=== PATIENT | female | born 1990 | race Two or more races ===

== ENCOUNTER 2024-03-09 09:37 | Emergency (ER) | payer OTHER ==
[~2024-03-09] VITALS: Ht 154.9 cm; Wt 62.6 kg
[2024-03-09] MEDS ORDERED: PRENA1 TRUE CO1 EACH PO (10:02)
[2024-03-09 10:53] LABS: HEMATOCRIT 34.7 % (36.0-45.00); HEMOGLOBIN 11.6 g/dL (12.0-15.00); MEAN CELL VOLUME 81.9 fL (80.00-100.00); MEAN CORPUSCULAR HEMOGLOBIN 27.4 pg (27.00-32.0); MEAN CORPUSCULAR HGB CONC 33.5 g/dl (32.0-36.0); PLATELET COUNT 341 K/uL (150-450); RED BLOOD COUNT 4.23 M/uL (4.00-6.00)
[2024-03-09 11:39] LABS: PH,URINE 5.5 (5.0-8.0); URINE APPEARANCE Cloudy; URINE BILIRRUBIN Negative (NEGATIVE); URINE BLOOD Moderate; URINE COLOR Dark Yellow; URINE GLUCOSE Negative (NEGATIVE); URINE KETONE Trace (NEGATIVE); URINE LEUKOCYTE Negative; URINE NITRATE Negative; URINE PROTEIN Trace (NEGATIVE)
[2024-03-09 11:43] LABS: URINE BACTERIA 2935.7 uL (0.0-1933); URINE EPITHELIAL CELLS 40.1 uL (0.0-38.8); URINE RBC 12.3 uL (0.0-20.8)
[2024-03-09 12:14] LABS: URINE CAST 0.76 uL (0.0-1.40)
[2024-03-09] MEDS ORDERED: AMOX1TAB5 PO (12:22)
[2024-03-09] MEDS ORDERED: PEPCID AC20 MG PO (12:22)
== END 2024-03-09 12:28 | disposition home or self-care (01) ==
LOC: ER 09:38
PROVIDERS: General Practice
DX: R53.81 Other malaise (principal); N93.9 Abnormal uterine and vaginal bleeding, unspecified; Z3A.10 10 weeks gestation of pregnancy

== ENCOUNTER 2024-03-26 05:48 | Day surgery (SDC) | payer OTHER ==
[2024-03-24 13:06] LABS: HEMATOCRIT 35.6 % (36.0-45.00); HEMOGLOBIN 11.9 g/dL (12.0-15.00); MEAN CELL VOLUME 81.6 fL (80.00-100.00); MEAN CORPUSCULAR HEMOGLOBIN 27.2 pg (27.00-32.0); MEAN CORPUSCULAR HGB CONC 33.4 g/dl (32.0-36.0); PLATELET COUNT 369 K/uL (150-450); RED BLOOD COUNT 4.36 M/uL (4.00-6.00)
[2024-03-24 13:27] LABS: INR 1.02; PARTIAL THROMBOPLASTIN TIME 28.2 SECONDS (22.0-34.0); PROTHROMBIN TIME 11.1 SECONDS (9.0-11.5)
[2024-03-24 13:41] LABS: PH,URINE 6.5 (5.0-8.0); URINE APPEARANCE Clear; URINE BILIRRUBIN Negative (NEGATIVE); URINE BLOOD Negative; URINE COLOR Yellow; URINE GLUCOSE Negative (NEGATIVE); URINE KETONE 15 (NEGATIVE); URINE LEUKOCYTE Negative; URINE NITRATE Negative; URINE PROTEIN Negative (NEGATIVE); URINE UROBILINOGEN 0.2 E.U./dl
[2024-03-24 13:45] LABS: URINE BACTERIA 146.1 uL (0.0-1933); URINE EPITHELIAL CELLS 5.8 uL (0.0-38.8); URINE RBC 3.8 uL (0.0-20.8); URINE WBC 4.4 uL (0.0-23.2)
[2024-03-24 14:10] LABS: ALBUMIN 3.6 gm/dL (3.4-5.0); BILIRUBIN TOTAL 0.35 mg/dL (0.3-1.2); CALCIUM 9.4 mg/dL (8.5-10.1); CREATININE SERUM 0.4 mg/dL (0.55-1.02); GFR 184.97; GLOBULINA 3.8 G/DL (2.4-3.5); POTASSIUM 4.07 mEq/L (3.5-5.1); TOTAL PROTEIN 7.4 gm/dL (6.4-8.2)
[~2024-03-26 05:48] MED LIST: AMOX1TAB5 PO; PEPCID AC20 MG PO; PRENA1 TRUE CO1 EACH PO
[2024-03-26] MEDS ORDERED: POVIDONE-IODINE 118 ML BOTT TOP ONE (16:15)
[2024-03-26] MEDS ORDERED: RINGERS SOLUTION,LACTATED 1,000 ML IV SCH (17:45)
== END 2024-03-26 21:10 | disposition home or self-care (01) ==
LOC: CIR.AMB 05:48
PROVIDERS: ATTEND Obstetrics & Gynecology Gynecology
DX: O34.31 Maternal care for cervical incompetence, first trimester (principal); Z3A.13 13 weeks gestation of pregnancy

== ENCOUNTER 2024-08-08 12:33 | Outpatient (CLI) | payer OTHER | END 2024-08-08 13:18 | disposition home or self-care (01) | LOC: NST 12:33 | PROVIDERS: ATTEND Obstetrics & Gynecology Maternal & Fetal Medicine | DX: Z3A.32 32 weeks gestation of pregnancy (principal) ==

== ENCOUNTER 2024-09-17 01:33 | Inpatient (IN) | payer OTHER ==
[~2024-09-17] VITALS: Ht 154.9 cm; Wt 68.5 kg
[2024-09-17] VITALS (10 sets, daily range): BP systolic 111–128; BP diastolic 60–82
[2024-09-17] MEDS ORDERED: RINGERS SOLUTION,LACTATED 1,000 ML IV SCH (01:45)
[2024-09-17 01:50] LABS: HEMATOCRIT 33.6 % (36.0-45.00); MEAN CELL VOLUME 80.2 fL (80.00-100.00); MEAN CORPUSCULAR HEMOGLOBIN 25.5 pg (27.00-32.0); MEAN CORPUSCULAR HGB CONC 31.8 g/dl (32.0-36.0); PLATELET COUNT 310 K/uL (150-450); RED BLOOD COUNT 4.19 M/uL (4.00-6.00)
[2024-09-17 01:57] LABS: HEMOGLOBIN 10.7 g/dL (12.0-15.00)
[2024-09-17 02:20] LABS: INR 0.94; PROTHROMBIN TIME 10.3 SECONDS (9.0-11.5)
[2024-09-17 02:21] LABS: ALBUMIN 2.7 gm/dL (3.4-5.0); BILIRUBIN TOTAL 0.25 mg/dL (0.3-1.2); CALCIUM 8.8 mg/dL (8.5-10.1); GFR 133.68; GLOBULINA 3.9 G/DL (2.4-3.5); POTASSIUM 4.49 mEq/L (3.5-5.1); TOTAL PROTEIN 6.6 gm/dL (6.4-8.2)
[2024-09-17 02:32] LABS: CREATININE SERUM 0.53 mg/dL (0.55-1.02)
[2024-09-17] MEDS ORDERED: MORPHINE SULFATE 4 MG/ML VIAL IV STA (05:34)
[2024-09-17] MEDS ORDERED: LIDOCAINE HCL 1% 10ML VIAL ONE (07:08)
[2024-09-17] MEDS ORDERED: ERYTHROMYCIN BASE OPHT 1GM EACH TUBE OP ONE ×2 (07:08→11:00)
[2024-09-17] MEDS ORDERED: OXYTOCIN 20 UNITS/1000ML RL PIGGYBAG IV ONE (07:08)
[2024-09-17] MEDS ORDERED: CHLORHEXIDINE GLUCONATE 120 ML BOTTLE TOP ONE ×2 (07:08→11:15)
[2024-09-17] MEDS ORDERED: NALOXONE HCL 0.4 MG/ML AMPUL ONE (09:23)
[2024-09-17] MEDS ORDERED: OxyCODONE HCL/APAP UD (PERCOCET) PO PRN (10:45)
[2024-09-17] MEDS ORDERED: IBUprofen 400 MG TABLET PO PRN (10:45)
[2024-09-17] MEDS ORDERED: OXYTOCIN 1,000 ML IV SCH (10:45)
[2024-09-17] MEDS ORDERED: CHLORHEXIDINE GLUCONATE 120 ML BOTTLE TOP SCH (10:45)
[2024-09-17] MEDS ORDERED: LIDOCAINE HCL 1% 10ML VIAL PERCUT ONE (11:00)
[2024-09-17] MEDS ORDERED: NALOXONE HCL 0.4 MG/ML AMPUL IV ONE (11:00)
[2024-09-18 01:01] VITALS: BP 98/60
[2024-09-18 08:25] VITALS: BP 108/70
[2024-09-18 13:33] VITALS: BP 118/76
[2024-09-18 15:52] VITALS: BP 103/66
[2024-09-19 00:31] VITALS: BP 100/62
[2024-09-19 08:00] VITALS: BP 104/54
[2024-09-22] MEDS ORDERED: OXYTOCIN 20 UNITS/1000ML RL PIGGYBAG IV ONE (12:12)
[2024-09-22] MEDS ORDERED: OXYTOCIN 10 UNITS/ML VIAL ONE (12:13)
== END 2024-09-19 14:57 | disposition home or self-care (01) | DRG 807 ==
LOC: LDR → OB/GYN 01:33 → LDR 01:33 → OB/GYN 08:44
PROVIDERS: ADMIT Obstetrics & Gynecology Maternal & Fetal Medicine; ATTEND Obstetrics & Gynecology Maternal & Fetal Medicine
PROC: 10E0XZZ Delivery of Products of Conception, External Approach (ICD-10-PCS; principal; 2024-09-17)
PROC: 0W8NXZZ Division of Female Perineum, External Approach (ICD-10-PCS; 2024-09-17)
PROC: 4A1HXCZ Monitoring of Products of Conception, Cardiac Rate, External Approach (ICD-10-PCS; 2024-09-17)
DX: O32.1XX0 Maternal care for breech presentation, not applicable or unspecified (principal); Z37.0 Single live birth; Z3A.38 38 weeks gestation of pregnancy